=== PATIENT | female | born 1975 | race Two or more races ===

== ENCOUNTER 2021-03-28 07:45 | Emergency (ER) | payer OTHER ==
[~2021-03-28] VITALS: Ht 177.8 cm; Wt 68.9 kg
[2021-03-28] MEDS ORDERED: PROTONIX20 MG (07:53)
== END 2021-03-28 10:06 | disposition home or self-care (01) ==
LOC: ER 07:45
DX: M94.0 Chondrocostal junction syndrome [Tietze] (principal)

== ENCOUNTER 2023-12-23 09:18 | Emergency (ER) | payer OTHER ==
[~2023-12-23] VITALS: Ht 152.4 cm; Wt 71.7 kg
[~2023-12-23 09:18] MED LIST: PROTONIX20 MG
[2023-12-23] MEDS ORDERED: BACLOFEN 10 MG TABLET PO ONE (11:45)
[2023-12-23] MEDS ORDERED: KETOROLAC TROMETHAMINE 60 MG VIAL IM ONE ×2 (11:45→12:28)
[2023-12-23] MEDS ORDERED: NEURONTIN300 MG PO (13:21)
[2023-12-23] MEDS ORDERED: KETO10TA2 PO (13:21)
[2023-12-23] MEDS ORDERED: CYCLOBENZAPRINE5 MG PO (13:21)
== END 2023-12-23 14:25 | disposition home or self-care (01) ==
LOC: ER 09:19
DX: M54.89 Other dorsalgia (principal); M54.30 Sciatica, unspecified side